=== PATIENT | female | born 1945 | race Caucasian/White ===

== ENCOUNTER 2023-10-08 15:11 | Observation (INO) ==
[2023-10-08 16:56] LABS: Albumin 4.2 g/dL (3.2-5.2); Albumin/Globulin Ratio 1.1 (1-3); C Reactive Protein 39.65 mg/L (<8.01); Calcium 9.5 mg/dL (8.6-10.3); Creatinine, Serum 0.61 mg/dL (0.51-0.95); Globulin 3.8 g/dL (2-4); Total Bilirubin 0.5 mg/dL (0.2-1.0); eGFR CKD-EPI 92.6 (>60)
[2023-10-08 17:48] LABS: ABS Basophils 0.1 10^3/uL (0.0-0.1); ABS Eosinophils 0.2 10^3/uL (0.0-0.5); ABS Lymphocytes 1.4 10^3/uL (1.0-4.8); ABS Monocytes 0.7 10^3/uL (0.0-0.9); ABS Neutrophils 7.6 10^3/uL (1.5-7.6); ABS Nucleated RBC 0.01 10^3/ul; Eosinophil % 2.3 %; Hemoglobin 13.3 g/dL (11.5-14.3); Lymphocyte % 13.7 %; Mean Corpuscular Hgb Conc 33.4 g/dL (31-36); Mean Corpuscular Volume 87.1 fL (80-97); Nucleated Red Blood Cells % 0.1 %/100WBC (0.0-0.8); Platelet Count 247 10^3/uL (150-450); Red Cell Distribution Width 12.9 % (12-17); White Blood Count 9.9 10^3/uL (3.8-11.8)
[2023-10-08 17:54] LABS: INR 1.15 (0.83-1.13)
[2023-10-08 18:11] LABS: High Sensitivity Troponin 1 Hr 6 pg/mL (<15)
[2023-10-08] MEDS ORDERED: Lactated Ringers 1000 ml BAG 1,000 ML IV ONE (22:55)
[2023-10-08] MEDS ORDERED: Iohexol 350 (CONTRAST) 500 ML MDV IV ONE (23:10)
[2023-10-09] MEDS ORDERED: Lactated Ringers 1000 ml BAG 1,000 ML IV ONE ×2 (01:32→15:38)
[2023-10-09] MEDS ORDERED: Azithromycin 500 mg/250 ml NS 500 MG/250 ML BAG IVPB ONE (03:48)
[2023-10-09] MEDS ORDERED: Piperacillin/Tazobac 3.375 BAG 3.375 GM/100 ML BAG IV ONE (03:48)
[2023-10-09] MEDS ORDERED: Enoxaparin 40 MG/0.4 ML SYR SUBCUT SCH (06:00)
[2023-10-09] MEDS ORDERED: Lactated Ringers 1000 ml BAG 1,000 ML IV SCH ×2 (11:00→11:36)
[2023-10-09] MEDS ORDERED: Amoxicillin/Clavul 875/125 TAB (Augmentin 875 tab) PO SCH (12:00)
[2023-10-09 15:33] VITALS: BP 147/82
[2023-10-10 17:29] LABS: Adenovirus Undetected (Undetected); Bordetella parapertussis Undetected (Undetected); Bordetella pertussis Undetected (Undetected); Chlamydophila pneumoniae Undetected (Undetected); Coronavirus 229E Undetected (Undetected); Coronavirus HKU1 Undetected (Undetected); Coronavirus NL63 Undetected (Undetected); Coronavirus OC43 Undetected (Undetected); Human Metapneumovirus Undetected (Undetected); Human Rhinovirus/Enterovirus Undetected (Undetected); Influenza A Undetected (Undetected); Influenza B Undetected (Undetected); Mycoplasmoides pneumoniae Undetected (Undetected); Parainfluenza Virus 1 Undetected (Undetected); Parainfluenza Virus 2 Undetected (Undetected); Parainfluenza Virus 3 Undetected (Undetected); Parainfluenza Virus 4 Undetected (Undetected); Respiratory Syncytial Virus Undetected (Undetected); Specimen Source NASOPHARYNGEAL SWAB
== END 2023-10-09 17:35 | disposition left against medical advice (07) ==
LOC: ED 15:11 → EDHOLD 15:11 → SUATTDRO 10-09 05:58 → MEDTELE 10-09 08:08
PROVIDERS: ADMIT Hospitalist; ATTEND Hospitalist